=== PATIENT | male | born 1970 | race African-American/Black ===

== ENCOUNTER 2020-12-31 21:46 | Emergency (ER) | payer MEDICAID ==
[2020-12-31] MEDS ORDERED: TYLENOL325 M1 PO (22:06)
[2020-12-31] MEDS ORDERED: PROAIR HFA8.5 GM INH (22:07)
[2020-12-31] MEDS ORDERED: BISACODYL10 MG R (22:11)
[2020-12-31 22:18] LABS: BASO % 0.2 % (0.0-1.0); EOS % 0.2 % (1.0-4.0); HEMATOCRIT 30.1 % (42.0-52.0); LYMPH % 9.1 % (27.0-41.0); MEAN CELL VOLUME 99.7 fl (80.0-94.0); MEAN CORPUSCULAR HGB 30.5 pg (27.0-31.0); MEAN CORPUSCULAR HGB CONC 30.6 g/dl (33.0-37.0); MEAN PLATELET VOLUME 9.8 fl (9.6-12.3); MONO # 0.8 10*3/uL (0.1-1.0); MONO % 7.1 % (3.0-9.0); NEUT # 9.2 10*3/uL (2.3-7.9); NEUT % 83.1 % (47.0-73.0); PLATELET COUNT AUTOMATED 274 10*3/uL (130-400); RED BLOOD COUNT 3.02 10*6/uL (4.50-5.90); RED CELL DISTRI WIDTH 14.1 % (0-14.5)
[2020-12-31 22:55] LABS: ALBUMIN 2.7 gm/dl (3.1-4.5); ALKALINE PHOSPHATASE 101 U/L (45-117); BUN 20 mg/dl (7-24); CHLORIDE 101 mmol/L (98-107); CREATININE 0.58 mg/dL (0.70-1.30); SGOT/AST 23 IU/L (3-35); SGPT/ALT 32 U/L (12-78); SODIUM 138 mmol/L (136-145); TOTAL PROTEIN 7.9 gm/dL (6.4-8.2)
== END 2021-01-01 02:28 ==
LOC: ED 21:46
PROVIDERS: Internal Medicine
DX: D64.9 Anemia, unspecified (principal); Z20.822 Contact with and (suspected) exposure to COVID-19; E88.09 Other disorders of plasma-protein metabolism, not elsewhere classified